=== PATIENT | male | born 1975 | race African-American/Black ===

== ENCOUNTER 2017-03-02 23:45 | Emergency (ER) | payer MEDICARE, OTHER ==
[~2017-03-02] VITALS: Ht 175.3 cm; Wt 72.7 kg
[~2017-03-02 23:45] MED LIST: NOCURR
[2017-03-03 01:43] VITALS: BP 144/90
[2017-03-03] MEDS ORDERED: KETOROLAC TROMETHAMINE 60 MG/2 ML VIAL IM ONE (01:45)
[2017-03-03] MEDS ORDERED: CYCLOBENZAPRINE HCL 10 MG TABLET PO ONE (01:45)
== END 2017-03-03 03:13 | disposition left against medical advice (07) ==
LOC: EMS 23:46
DX: M54.2 Cervicalgia (principal); M54.5 Low back pain; V49.50XA Passenger injured in collision with unspecified motor vehicles in traffic accident, initial encounter; Y93.89 Activity, other specified; Y92.89 Other specified places as the place of occurrence of the external cause; Y99.8 Other external cause status; Z53.21 Procedure and treatment not carried out due to patient leaving prior to being seen by health care provider
CPT/HCPCS: J1885

== ENCOUNTER 2018-03-10 12:24 | Inpatient (IN) | payer MEDICARE, MEDICAID ==
[~2018-03-10] VITALS: Ht 175.3 cm; Wt 88.5 kg
[2018-03-10 12:36] VITALS: BP 158/105
[2018-03-10] MEDS ORDERED: HALOPERIDOL 5 MG TABLET PO PRN (13:30)
[2018-03-10] MEDS ORDERED: ZOLPIDEM TARTRATE 10 MG TABLET PO PRN (13:30)
[2018-03-10] MEDS ORDERED: QUET100T PO (13:36)
[2018-03-10] MEDS ORDERED: HYDR25TA PO (13:36)
[2018-03-10] MEDS ORDERED: AMLO-512 PO (13:36)
[2018-03-10 13:51] VITALS: BP 144/96
[2018-03-10 16:05] VITALS: BP 150/89
[2018-03-10] MEDS: LORazepam 2 MG TABLET PO PRN (17:55)
[2018-03-10] MEDS ORDERED: MAG HYDROX/AL HYDROX/SIMETH ES 30 ML SUSPENSION UDCUP PO PRN (18:15)
[2018-03-10] MEDS ORDERED: LOPERAMIDE HCL 2 MG CAPSULE PO PRN (18:15)
[2018-03-10] MEDS ORDERED: ALBUTEROL SULFATE HFA 90 MCG/PUFF 8 GM INHALER IH PRN (18:15)
[2018-03-10] MEDS ORDERED: PETROLATUM,WHITE 71 GM JELLY TP PRN (18:15)
[2018-03-10] MEDS ORDERED: CloNIDine HCL 0.1 MG TABLET PO PRN (18:15)
[2018-03-10] MEDS ORDERED: MAGNESIUM HYDROXIDE SUSPENSION 30 ML UDCUP PO PRN (18:15)
[2018-03-10] MEDS ORDERED: PNEUMOCOCCAL VACCINE POLYVALENT 0.5 ML VIAL [PPSV23] IM ONE (18:15)
[2018-03-10] MEDS ORDERED: DOCUSATE SODIUM 100 MG CAPSULE PO PRN (18:15)
[2018-03-10] MEDS ORDERED: NICOTINE 14 MG/24 HOUR PATCH TD PRN (18:15)
[2018-03-10] MEDS ORDERED: AmLODIPine BESYLATE 10 MG TABLET PO ONE (18:15)
[2018-03-10] MEDS ORDERED: IBUPROFEN 400 MG TABLET PO PRN (18:15)
[2018-03-10] MEDS ORDERED: GuaiFENesin/D-METHORPHAN [SUGAR-FREE] 200-20MG/10 ML SYRUP UDCUP PO PRN (18:15)
[2018-03-10] MEDS ORDERED: ACETAMINOPHEN 325 MG TABLET PO PRN (18:15)
[2018-03-10] MEDS ORDERED: ONDANSETRON HCL 4 MG TABLET PO PRN (18:15)
[2018-03-10 19:30] VITALS: BP 126/78
[2018-03-11 05:20] VITALS: BP 121/66
[2018-03-11 08:03] LABS: BASOPHILS % (AUTO) 0.9 % (0.0-2.0); EOSINOPHILS % (AUTO) 7.7 % (1.0-6.0); HEMATOCRIT 38.1 % (41-53); HEMOGLOBIN 12.5 g/dL (13.5-17.5); LYMPHOCYTES # (AUTO) 2.6 K/uL (1.0-4.8); LYMPHOCYTES % (AUTO) 39.5 % (22.0-44.0); MEAN CORPUSCULAR HEMOGLOBIN 27.5 pg (26.0-34.0); MEAN CORPUSCULAR HGB CONC 32.8 G/dL (31.0-37.0); MEAN CORPUSCULAR VOLUME 84 fL (80-100); MONOCYTES # (AUTO) 0.7 K/uL (0.1-1.0); MONOCYTES % (AUTO) 9.8 % (2.0-9.0); NEUTROPHILS # (AUTO) 2.8 K/uL (1.8-7.7); NEUTROPHILS % (AUTO) 42.1 % (40.0-70.0); PLATELET COUNT (AUTO) 379 K/uL (150-450); RED BLOOD CELL COUNT(AUTO) 4.54 MIL/uL (4.50-5.90); RED CELL DISTRIBUTION WIDTH 14.9 % (11.5-14.5)
[2018-03-11 08:09] LABS: HEMOGLOBIN A1C 5.9 % (4.5-6.2)
[2018-03-11] MEDS: AmLODIPine BESYLATE 10 MG TABLET PO SCH (08:18)
[2018-03-11] MEDS: NICOTINE 21 MG/24 HOUR PATCH TD SCH (08:18)
[2018-03-11 08:24] LABS: ALANINE AMINOTRANSFERASE 21 U/L (12-78); ALBUMIN 2.9 g/dL (3.4-5.0); ALKALINE PHOSPHATASE 75 U/L (46-116); ANION GAP 5 mmol/L (8-16); ASPARTATE AMINOTRANSFERASE 23 U/L (15-37); BILIRUBIN,TOTAL 0.2 mg/dL (0.1-1.0); CALCIUM, TOTAL 8.3 mg/dL (8.8-10.5); CARBON DIOXIDE 30 mmol/L (22-29); CHLORIDE 107 mmol/L (98-107); CHOL/HDL RATIO 5.5 (4.2-7.3); CHOLESTEROL 170 mg/dL (131-200); CREATININE 1.12 mg/dL (0.60-1.30); FREE T4 (FREE THYROXINE) 0.66 ng/dL (0.76-1.46); GLOMERULAR FILTR. RATE CALC > 60 mL/min (>60); GLUCOSE,RANDOM 93 mg/dL (70-110); HDL CHOLESTEROL 31 mg/dL (40-60); LDL CHOL (CALC.) 112 mg/dL (0-130); POTASSIUM 3.9 mmol/L (3.5-5.1); SODIUM SERUM 142 mmol/L (136-145); THYROID STIMULATING HORMONE 0.88 uIU/mL (0.36-3.74); TOTAL PROTEIN, SERUM 6.5 g/dL (6.4-8.2); TRIGLYCERIDES 134 mg/dL (15-150); UREA NITROGEN, BLOOD 14 mg/dL (7-18)
[2018-03-11 08:29] VITALS: BP 125/60
[2018-03-11] MEDS: LORazepam 2 MG TABLET PO PRN (13:47)
[2018-03-11 16:33] VITALS: BP 139/78
[2018-03-11] MEDS: QUEtiapine FUMARATE 100 MG TABLET PO SCH (20:01)
[2018-03-12 00:57] VITALS: BP 110/63
[2018-03-12 08:16] VITALS: BP 126/97
[2018-03-12 08:37] VITALS: BP 149/78
[2018-03-12] MEDS: NICOTINE 21 MG/24 HOUR PATCH TD SCH (08:37)
[2018-03-12] MEDS: AmLODIPine BESYLATE 10 MG TABLET PO SCH (08:37)
[2018-03-12] MEDS: HYDROCHLOROTHIAZIDE 25 MG TABLET PO SCH (08:37)
[2018-03-12 16:26] VITALS: BP 138/88
[2018-03-12] MEDS: LORazepam 2 MG TABLET PO PRN (17:40)
[2018-03-12] MEDS: QUEtiapine FUMARATE 100 MG TABLET PO SCH (20:20)
[2018-03-13 05:49] VITALS: BP 121/61
[2018-03-13 08:10] VITALS: BP 126/73
[2018-03-13] MEDS: HYDROCHLOROTHIAZIDE 25 MG TABLET PO SCH (09:02)
[2018-03-13] MEDS: AmLODIPine BESYLATE 10 MG TABLET PO SCH (09:02)
[2018-03-13] MEDS: NICOTINE 21 MG/24 HOUR PATCH TD SCH (09:03)
[2018-03-13] MEDS: LORazepam 2 MG TABLET PO PRN (16:09)
[2018-03-13 16:41] VITALS: BP 140/66
[2018-03-13] MEDS: QUEtiapine FUMARATE 200 MG TABLET PO SCH (20:54)
[2018-03-14 06:05] VITALS: BP 107/65
[2018-03-14 08:09] VITALS: BP 131/61
[2018-03-14] MEDS: HYDROCHLOROTHIAZIDE 25 MG TABLET PO SCH (08:12)
[2018-03-14] MEDS: AmLODIPine BESYLATE 10 MG TABLET PO SCH (08:12)
[2018-03-14] MEDS: NICOTINE 21 MG/24 HOUR PATCH TD SCH (08:12)
[2018-03-14 16:00] VITALS: BP 130/84
[2018-03-14] MEDS: QUEtiapine FUMARATE 200 MG TABLET PO SCH (20:34)
[2018-03-15 00:33] VITALS: BP 128/86
[2018-03-15] MEDS: HYDROCHLOROTHIAZIDE 25 MG TABLET PO SCH (08:04)
[2018-03-15] MEDS: AmLODIPine BESYLATE 10 MG TABLET PO SCH (08:04)
[2018-03-15] MEDS: NICOTINE 21 MG/24 HOUR PATCH TD SCH (08:04)
[2018-03-15 08:17] VITALS: BP 120/76
[2018-03-15] MEDS ORDERED: QUET200T29 PO (11:27)
== END 2018-03-15 12:30 | disposition home or self-care (01) | DRG 885 ==
LOC: B2S 13:47
DX: F20.0 Paranoid schizophrenia (principal); F14.20 Cocaine dependence, uncomplicated; F10.20 Alcohol dependence, uncomplicated; I10 Essential (primary) hypertension; G47.00 Insomnia, unspecified; D64.9 Anemia, unspecified; Z59.0 Homelessness; Z79.899 Other long term (current) drug therapy; F19.10 Other psychoactive substance abuse, uncomplicated; Z71.41 Alcohol abuse counseling and surveillance of alcoholic; Z71.51 Drug abuse counseling and surveillance of drug abuser; Z28.21 Immunization not carried out because of patient refusal
CPT/HCPCS: 83036; 84436; 84439; 84443